=== PATIENT | male | born 1990 | race Caucasian/White ===

== ENCOUNTER 2020-12-29 12:32 | Emergency (ER) | payer OTHER, SELFPAY ==
[2020-12-29 12:39] VITALS: BP 155/91; PULSE 83; RESP 20; TEMP 36.6; O2SAT 98
--- NOTE | 2020-12-29 12:41 | ED.GENADULT ---
HPI - General Adult General Chief complaint: Chest Pain Stated complaint: been having chest pain for days Time Seen by Provider: 12/29/20 12:41 Source: patient and RN notes reviewed Mode of arrival: ambulatory Limitations: no limitations History of Present Illness HPI narrative: 30-year-old male presents to the [facility] with complaints of left-sided chest wall pain since Tuesday, 5 days ago. Has increased stress. Has been golfing. Has started a new job. Currently pain-free on exam. States his pain was really bad yesterday but better today. Denies nausea, vomiting, diarrhea. No shortness of breath. Does not radiate anywhere. Pain is easily reproducible along the left sternal border Related Data Home Medications Medication Instructions Recorded Confirmed No Home Medications 12/29/20 12/29/20 Allergies Allergy/AdvReac Type Severity Reaction Status Date / Time Sulfa (Sulfonamide Allergy Mild Rash Verified 12/29/20 12:56 Antibiotics) Review of Systems Review of Systems: Narrative: CONSTITUTIONAL: Denies fever, chills, or sweats. EYES: Denies visual changes, redness, or discharge. ENT: Denies rhinorrhea, congestion, sore throat, or otalgia. CARDIOVASCULAR: reports chest wall pain. Denies palpitations, or edema. RESPIRATORY: Denies cough or dyspnea. GASTROINTESTINAL: Denies abdominal pain, nausea, vomiting, or diarrhea. GENITOURINARY: Denies dysuria or hematuria. SKIN: Denies rash or itching. MUSCULOSKELETAL: Denies back pain, joint pain, or myalgia. NEUROLOGIC: Denies headache, numbness, or weakness. PSYCHIATRIC: Denies anxiety or depression. All other systems reviewed are negative, except as documented in HPI. PMFSH Social History Social History Smoking status: Never smoker Alcohol intake: current Comments At the time of my signature, I reviewed and agree with the nursing past medical, surgical, social, and family history. There is no relevant family history pertinent to the patient complaint. Exam Narrative: Exam Narrative: GENERAL: This is a well-nourished, well-developed patient, in no apparent distress. HEAD: normocephalic, atraumatic. EYES: PERRL. Sclera clear/white. Vision is grossly intact. EARS: External ears normal, CARDIOVASCULAR: Regular rate and rhythm without murmurs, gallops, or rubs. Able to reproduce pain with palpation. Patient does report also that the pain is worse with movement of the left arm. RESPIRATORY: Clear to auscultation. Breath sounds equal bilaterally. No wheezes, rales, or rhonchi. GASTROINTESTINAL: Abdomen soft, non-tender, nondistended. SKIN: warm, intact with no suspicious lesions or rash, good texture and turgor. NEURO: awake, alert, and oriented to person, place and time. There were no obvious focal neurologic abnormalities. EXTREMITIES: No joint tenderness, effusion, or edema noted. . BACK: Nontender without deformity. No CVA tenderness. Course Vital Signs Vital signs: Vital Signs Temperature 98 F 12/29/20 12:39 Pulse Rate 83 12/29/20 12:39 Respiratory Rate 12/29/20 12:39 Blood Pressure 155/91 H 12/29/20 12:39 Pulse Oximetry 98 12/29/20 12:39 Temperature 98 F 12/29/20 12:39 Pulse Rate 83 12/29/20 12:39 Respiratory Rate 12/29/20 12:39 Blood Pressure 155/91 H 12/29/20 12:39 Pulse Oximetry 98 12/29/20 12:39 Reviewed Medical Decision Making MDM Narrative Medical decision making narrative: Discussed with patient, symptoms since Tuesday, 5 days ago has recently played golf and gone to the driving range. Pain was yesterday. Currently pain-free on exam. Patient reports that pain was made worse with movements of the left arm. Had tenderness to the left sternal border on palpation. Vital Signs Vital Signs: Vital Signs Temperature 98 F 12/29/20 12:39 Pulse Rate 83 12/29/20 12:39 Respiratory Rate 12/29/20 12:39 Blood Pressure 155/91 H 12/29/20 12:39
--- NOTE | 2020-12-29 12:53 | ECG_ITS ---
Measurements Intervals Roy Rate: 71 P: 19 OH: 146 QRS: 44 QRSD: 105 T: 30 QT: 364 QTc: 396 Interpretive Statements SINUS RHYTHM BASELINE ARTIFACT- II, III, AVF NORMAL ECG Electronically Signed On 12-29-2020 12:58:20 CDT by Darrian Bal D.O.
== END 2020-12-29 13:15 | disposition home or self-care (01) ==
PROVIDERS: Emergency Provider Nurse Practitioner
DX: R07.89 Other chest pain (principal)
CPT/HCPCS: 93005; 99213; G0463